=== PATIENT | female | born 1985 | race Caucasian/White ===

== ENCOUNTER 2017-02-19 04:49 | Emergency (ER) | payer OTHER ==
[2017-02-19 04:49] VITALS: BMI 22.0
[2017-02-19 04:59] VITALS: RESP 16; O2SAT 100
[2017-02-19] MEDS ORDERED: Sodium Chloride 0.9% 1,000 ML IV ONE (05:16)
[2017-02-19] MEDS ORDERED: Sodium Chloride 0.9% 1,000 ML ONE (05:27)
[2017-02-19 05:36] LABS: BASO % 0.4 % (0.0-2.0); EOS # 0.1 K/uL (0.0-0.7); HEMOGLOBIN 12.7 g/dL (11.0-16.0); LYMPH # 2.6 K/uL (1.0-4.3); LYMPH % 37.9 % (20.0-40.0); MEAN CELL VOLUME 88.7 fL (81.0-99.0); MEAN CORPUSCULAR HEMOGLOBIN 31.1 pg (27.0-31.0); MEAN CORPUSCULAR HGB CONC 35.1 g/dL (33.0-37.0); MEAN PLATELET VOLUME 8.4 fL (7.2-11.7); MONO # 0.4 K/uL (0.0-0.8); MONO % 5.5 % (0.0-10.0); NEUT # 3.8 K/uL (1.8-7.0); NEUT % 55.2 % (50.0-75.0); RBC 4.08 Mil/uL (3.80-5.20); RED CELL DISTRIBUTION WIDTH 12.9 % (11.5-14.5); WHITE BLOOD COUNT 6.8 K/uL (4.8-10.8)
[2017-02-19 05:58] LABS: ALB/GLOB RATIO 1.4 (1.0-2.1); ALBUMIN 4.4 g/dL (3.5-5.0); ALT/SGPT 28 U/L (9-52); AST/SGOT 25 U/L (14-36); BLOOD UREA NITROGEN 17 mg/dL (7-17); CALCIUM 8.9 mg/dl (8.6-10.4); GFR AFRICAN-AMERICAN > 60; GFR NON-AFRICAN AMERICAN > 60
--- NOTE | 2017-02-19 06:19 | C.PDOC ---
History Of Present Illness Pt presents to ER with c/o of dizziness described as spinning sensation upon waking up at 0300 this morning associated with vomiting. Pt denies headache, palpitations, abdominal pain, weakness. Time Seen by Provider: 02/19/17 05:05 Chief Complaint (Nursing): GI Problem History Per: Patient History/Exam Limitations: no limitations Current Symptoms Are (Timing): Still Present Severity: Moderate Past Medical History Vital Signs: Last Vital Signs Temp 97.8 F 02/19/17 06:23 Pulse 61 02/19/17 06:23 Resp 16 02/19/17 06:23 BP 103/63 02/19/17 06:23 Pulse Ox 100 02/19/17 07:03 - Medical History PMH: No Chronic Diseases Denies: Chronic Kidney Disease Family History: States: Unknown Family Hx - Social History Hx Tobacco Use: No Hx Alcohol Use: No Hx Substance Use: No - Immunization History Hx Influenza Vaccination: No Hx Pneumococcal Vaccination: No Review Of Systems Constitutional: Negative for: Fever Eyes: Negative for: Vision Change ENT: Negative for: Ear Pain Cardiovascular: Negative for: Chest Pain, Palpitations Respiratory: Negative for: Cough, Shortness of Breath Gastrointestinal: Positive for: Nausea, Vomiting. Negative for: Abdominal Pain Neurological: Positive for: Dizziness. Negative for: Weakness, Numbness, Change in Speech, Altered Mental Status, Headache Physical Exam - Physical Exam Appears: Well, Non-toxic, No Acute Distress Skin: Normal Color Head: Atraumatic Eye(s): bilateral: Normal Inspection, PERRL, EOMI Oral Mucosa: Moist Neck: Normal, Supple Chest: Symmetrical Cardiovascular: Rhythm Regular, No Murmur Respiratory: Normal Breath Sounds Back: No CVA Tenderness Extremity: Normal ROM Neurological/Psych: Oriented x3, Normal Speech, Normal Motor, Normal Sensation Gait: Steady ED Course And Treatment - Laboratory Results Result Diagrams: 02/19/17 05:39 02/19/17 05:39 Urine POC: Negative ECG Interpretation: Normal, No Acute Changes Interpretation Of ECG: NSR Rate From EC O2 Sat by Pulse Oximetry: 100 Pulse Ox Interpretation: Normal Progress Note: Pt reports some improvement after meds and fluids. Pt is ambulatory with no dizziness. Labs also d/w pt along with follow up and discharge instructions. Pt agrees to plan. Reevaluation Time: 06:40 Reassessment Condition: Improved Disposition Counseled Patient/Family Regarding: Diagnosis, Need For Followup, Rx Given - Disposition Disposition: HOME/ ROUTINE Disposition Time: 06:19 Condition: STABLE Additional Instructions: Pt presents to ER with c/o of dizziness described as spinning sensation whih awakened her from sleep at 3 am associated with nausea Prescriptions: Meclizine [Meclizine*] 25 mg PO Q6 #20 tab Instructions: Vertigo (ED) Forms: [employer] (Serbian) Print Language: ALBANIAN - Clinical Impression Clinical Impression: Vertigo
[2017-02-19 06:24] VITALS: BP 103/63; PULSE 61
[2017-02-19 06:34] VITALS: TEMP 97.8
--- NOTE | 2017-02-22 07:05 | CARD ---
APPROVED REPORT EKG Measurement Heart [id number] <Conclusion> Normal sinus rhythm Normal ECG
== END 2017-02-19 06:36 | disposition home or self-care (01) ==
LOC: C.ER 04:49
DX: R42 Dizziness and giddiness (principal)
CPT/HCPCS: 80053; 85025; 96361; 96374; 99284; J2405; J7040